=== PATIENT | female | born 1985 | race Two or more races ===

== ENCOUNTER 2020-04-18 14:30 | Inpatient (IN) | payer OTHER ==
[~2020-04-18] VITALS: Ht 152.4 cm; Wt 2.7 kg
[~2020-04-18 14:30] MED LIST: KETO10TA2 PO; ORPH100T PO
[2020-04-22] MEDS ORDERED: PRENATAL CAPLE1 EAC1 PO (10:32)
[2020-04-22] MEDS ORDERED: LEVOTHYROXINE25 MCG PO (10:32)
[2020-04-22] MEDS ORDERED: CHILDREN'S ASPI81 MG PO (10:32)
== END 2020-04-25 13:05 | disposition home or self-care (01) | DRG 788 ==
LOC: LDR 04-22 04:41 → SURG-SUITE 04-22 19:06 → SURH 04-27 14:30 → OB/GYN 04-27 14:30
PROVIDERS: ADMIT Obstetrics & Gynecology; ATTEND Obstetrics & Gynecology
PROC: 4A1HXFZ Monitoring of Products of Conception, Cardiac Rhythm, External Approach (ICD-10-PCS; 2020-04-22)
PROC: 3E033VJ Introduction of Other Hormone into Peripheral Vein, Percutaneous Approach (ICD-10-PCS; 2020-04-22)
PROC: 10D00Z1 Extraction of Products of Conception, Low, Open Approach (ICD-10-PCS; principal; 2020-04-22 17:00)
DX: O62.1 Secondary uterine inertia (principal); Z3A.39 39 weeks gestation of pregnancy; Z37.0 Single live birth; Z20.828 Contact with and (suspected) exposure to other viral communicable diseases

== ENCOUNTER 2024-06-16 12:36 | Emergency (ER) | payer OTHER ==
[~2024-06-16] VITALS: Ht 157.5 cm; Wt 45.4 kg
[~2024-06-16 12:36] MED LIST changes: +AVIDOXY100 MG PO; +CHILDREN'S ASPI81 MG PO; +LEVOTHYROXINE25 MCG PO; +PRENATAL CAPLE1 EAC1 PO
[2024-06-16] MEDS ORDERED: LEVOTHYROXINE25 MCG (12:44)
[2024-06-16] MEDS ORDERED: METHYLPREDNISOLONE SOD SUCC 125 MG VIAL ONE (13:08)
[2024-06-16] MEDS ORDERED: METHYLPREDNISOLONE SOD SUCC 125 MG VIAL IV ONE (13:15)
== END 2024-06-16 15:29 | disposition home or self-care (01) ==
LOC: ER 12:36
DX: J06.9 Acute upper respiratory infection, unspecified (principal); Z20.822 Contact with and (suspected) exposure to COVID-19; Z88.8 Allergy status to other drugs, medicaments and biological substances; Z91.013 Allergy to seafood; E03.9 Hypothyroidism, unspecified